=== PATIENT | female | born 1965 | race Two or more races ===

== ENCOUNTER 2020-02-20 21:37 | Inpatient (IN) | payer OTHER ==
[2020-02-21 01:15] VITALS: BP 168/99
--- NOTE | 2020-02-21 01:15 | NUR ---
Patient is a 54 y/o female, admitted to [facility] transferred from [facility] d/t generalized body pain and lupus flare up. Transferred by ambulance by gurney. Patient is alert, and oriented x 4. Able to make needs known. Patient is ambulatory. Skin is intact with edema and dry skin noted on BLE. [employer] made aware of patient's admission. Home meds reconciled, [employer] informed. Patient denies of any pain. No s/s of acute distress or discomfort. Assisted with ADLs and transfers. Kept skin clean and dry. Fall precautions observed. Patient oriented to hospital and staff. Call light within reach.
[2020-02-21] MEDS ORDERED: ONDANSETRON HCL/PF 4 MG/2 ML VIAL IVP PRN (01:30)
[2020-02-21] MEDS ORDERED: HYDROCODONE/APAP 5/325MG TABLET PO PRN (01:30)
[2020-02-21] MEDS ORDERED: LORAZEPAM 0.5 MG TABLET PO PRN (01:30)
[2020-02-21] MEDS ORDERED: ACETAMINOPHEN 325 MG TABLET PO PRN (01:30)
[2020-02-21] MEDS ORDERED: MAG HYDROX/AL HYDROX/SIMETH 30 ML UDC PO PRN (01:30)
[2020-02-21] MEDS ORDERED: ZOLPIDEM TARTRATE 5 MG TABLET PO PRN (01:30)
[2020-02-21] MEDS ORDERED: IV 1/2NS 1000 ML 1,000 ML IV PRN (01:30)
[2020-02-21] MEDS ORDERED: MAGNESIUM HYDROXIDE 30 ML UDC PO PRN (01:30)
[2020-02-21] MEDS ORDERED: CLONIDINE HCL 0.1 MG TABLET PO PRN (01:30)
[2020-02-21] MEDS ORDERED: MORPHINE SULFATE INJ 2 MG/ML DISP.SYRIN IV PRN (01:30)
[2020-02-21] MEDS ORDERED: METH4TAB17 PO (02:01)
[2020-02-21] MEDS ORDERED: IBUP-1953 PO (02:01)
[2020-02-21] MEDS ORDERED: LEVO150T8 PO (02:14)
[2020-02-21] MEDS ORDERED: ATOR40TA PO (02:15)
[2020-02-21] MEDS ORDERED: HYDR-4076 PO (02:15)
[2020-02-21 06:28] LABS: BASOPHILS # (AUTO) 0.2 /CMM (0.0-0.2); BASOPHILS % (AUTO) 1.3 % (0.0-2.0); EOSINOPHILS % (AUTO) 1.8 % (0.0-6.0); HEMATOCRIT 40 % (33-45); HEMOGLOBIN 13.1 g/dL (11.5-14.8); LYMPHOCYTES # (AUTO) 5.7 /CMM (0.8-4.8); LYMPHOCYTES % (AUTO) 42.8 % (20.0-44.0); MEAN CORPUSCULAR HGB CONC 33 g/dl (31.0-36.0); MEAN CORPUSCULAR VOLUME 98 fL (82-100); MONOCYTES # (AUTO) 0.8 /CMM (0.1-1.30); MONOCYTES % (AUTO) 6.3 % (2.0-12.0); NEUTROPHILS # (AUTO) 6.3 /CMM (1.8-8.9); NEUTROPHILS % (AUTO) 47.8 % (43.0-81.0); PLATELET COUNT (AUTO) 339 /CMM (150-450); RED BLOOD CELL COUNT(AUTO) 4.11 MIL/uL (4.0-5.2); WHITE BLOOD COUNT (AUTO) 13.2 K/uL (4.3-11.0)
[2020-02-21 06:38] LABS: ALBUMIN 3.6 g/dL (3.4-5.0); BILIRUBIN,TOTAL 0.3 mg/dL (0.2-1.0); CALCIUM, SERUM 8.6 mg/dL (8.5-10.1); MAGNESIUM 2.3 mg/dL (1.8-2.4); POTASSIUM 3.9 mmol/L (3.5-5.1); TOTAL PROTEIN, SERUM 7.1 g/dL (6.4-8.2)
--- NOTE | 2020-02-21 07:10 | NUR ---
ms rn received on bed, awake,alert,oriented x4,not in any form of distress, respirations even and unlabored,no sob noted, lungs are clear,abdomen soft,positive bowel sounds,denies pain at this time,will monitor patient.
[2020-02-21] MEDS ORDERED: HYDR-4384 PO (08:54)
[2020-02-21 08:55] VITALS: BP 138/82
[2020-02-21] MEDS ORDERED: NAPROXEN 500 MG TABLET PO SCH (09:00)
[2020-02-21] MEDS ORDERED: predniSONE 20 MG TABLET PO SCH (09:00)
--- NOTE | 2020-02-21 09:00 | NUR ---
ms ponce breakfast served,due meds given tolerated well.
--- NOTE | 2020-02-21 09:10 | NUR ---
ms ponce was seen by dr. antonino noble/ orders made and carried out.
--- NOTE | 2020-02-21 11:20 | NUR ---
ms rn patient has order to go home today, patient is aware.
--- NOTE | 2020-02-21 13:05 | NUR ---
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
[2020-02-21] MEDS ORDERED: PRED20TA PO (14:04)
== END 2020-02-21 15:15 | disposition home or self-care (01) | DRG 346 ==
LOC: MED 02-21 01:11
DX: M32.9 Systemic lupus erythematosus, unspecified (principal); J45.909 Unspecified asthma, uncomplicated; I10 Essential (primary) hypertension; H93.19 Tinnitus, unspecified ear; E78.5 Hyperlipidemia, unspecified; E66.01 Morbid (severe) obesity due to excess calories; E06.3 Autoimmune thyroiditis; Z90.49 Acquired absence of other specified parts of digestive tract
CPT/HCPCS: 36415; 80053-TC; 83735-TC; 84100-TC; 85025-TC; 87081-TC; G0378